=== PATIENT | female | born 1970 | race Caucasian/White ===

== ENCOUNTER 2020-03-13 01:33 | Outpatient (CLI) | payer OTHER, SELFPAY ==
[2020-03-13 18:23] LABS: SARS-CoV-2 RNA PCR Negative
== END 2020-03-13 01:34 | disposition home or self-care (01) ==
LOC: ANHCOVIDDT 01:33
PROVIDERS: PCP Family Medicine; Visit Provider Internal Medicine Gastroenterology
DX: Z01.812 Encounter for preprocedural laboratory examination (principal); Z20.828 Contact with and (suspected) exposure to other viral communicable diseases
CPT/HCPCS: 87635; C9803; U0003

== ENCOUNTER 2020-03-15 00:35 | Day surgery (SDC) | payer OTHER, SELFPAY ==
[2020-03-01 14:03] VITALS: BMI 23.3
[2020-03-15] MEDS: LACTATED RINGERS 1,000 ML 150 ML IV CONT (06:47)
[2020-03-15 06:54] VITALS: BP 125/74; PULSE 73; RESP 15; TEMP 36.3; O2SAT 100; BMI 22.4
--- NOTE | 2020-03-15 07:14 | P.PNAN_ITS ---
Anes - Initial Pre Proc Eval Procedure: Operation Date: 03/15/20 07:30 Proposed Procedures p Screening Colonoscopy - Yovani Grewal MD Date/Time: 03/15/20 07:14 Surgeon: Yovani Grewal MD Pre Op Diagnosis: neoplasm screening Patient Data Age: 50 Gender: F Height: 5 ft 3 in Weight: 57.6 kg Last Vital Signs Temp 97.4 F L 03/15/20 06:54 Pulse 73 03/15/20 06:54 Resp 15 03/15/20 06:54 BP 125/74 03/15/20 06:54 Pulse Ox 100 03/15/20 06:54 Allergies Allergy/AdvReac Type Severity Reaction Status Date / Time cat dander Allergy Unknown WHEEZING Verified 03/15/20 06:31 Home Medications Medication Instructions Recorded Confirmed Type albuterol sulfate 90 mcg/actuation 1 inhalation INHALATION Q4H PRN 01/09/20 03/15/20 History aerosol inhaler mometasone 200 mcg/actuation HFA 2 puff INHALATION DAILY gm 01/09/20 03/15/20 History aerosol inhaler cyclobenzaprine 10 mg tablet 10 mg PO TID PRN #30 tablet 02/21/20 03/15/20 Rx ascorbic acid (vitamin C) [Vitamin 1 g PO DAILY 03/01/20 03/15/20 History C] cholecalciferol (vitamin D3) 25 mcg PO DAILY 03/01/20 03/15/20 History [Vitamin D3] [id number]-lua-rdgy-FA-vit K 1 tablet PO DAILY 03/01/20 03/15/20 History [Adults Multivitamin] Patient hx anesthesia problems: none Family hx anesthesia problems: none [facility] Social History Social History (Reviewed 02/21/20 @ 12:43 by Monae Chaudhary [facility]) Smoking status: Never smoker Alcohol intake: current Drinks per week: 6 Substance use: never Substance use type: does not use Anes - Eval Final PreProcedure Day of Procedure 03/15/20 07:14 Patient weight: normal Heart: regular rate and rhythm Lungs: clear to auscultation Airway: Mallampati scale class II Neurological: alert and oriented Last oral intake: >/= 8 hours ASA classification: II Emergent: no Anesthetic plan: proceed Anesthesia type and monitoring: general GIVS and standard monitoring Informed Consent: The patient's anesthetic plan and its attendant risks and benefits were discussed with the patient/family/POA. Questions were solicited and answers provided to the satisfaction of the patient/family/POA.
--- NOTE | 2020-03-15 07:47 | WPDGICN ---
Assessment and Plan Assessment and plan (1) Encounter for screening colonoscopy: Code(s): Z12.11 - Encounter for screening for malignant neoplasm of colon Status: Acute Assessment and Plan: Screening colonoscopy plan because of age. Patient appears to be at average risk for colon polyps. Plan is for colonoscopy further recommendations will be given after endoscopy. GI Consult Note Consult date/time: 03/15/20 07:47 HPI: Mini Gardiner is a 50 year old female Seen in evaluation at the request of Dr. Starla Agrawal. Patient presents for neoplasia screening. Current weight appetite bowel movements are normal. She denies abdominal pain. She has had no blood in her stools. Family history is noncontributory. Review of Systems Review of Systems: All systems reviewed & are unremarkable except as noted in HPI and below PMFSH Past Medical History Medical History Asthma Fibrocystic breast Right breast; biopsy-2019 Surgical History Surgical History Delivery by section 1996 Delivery by section 2000 Fibroid, uterine 2018 Family History Family History Grandparent Heart disease Breast cancer Malignant neoplasm of prostate Glaucoma Mother Asthma Social History Social History Smoking status: Never smoker Alcohol intake: current Drinks per week: 6 Substance use: never Substance use type: does not use Meds Home Medications and Allergies Home Medications Medication Instructions Recorded Confirmed Type albuterol sulfate 90 mcg/actuation 1 inhalation INHALATION Q4H PRN 01/09/20 03/15/20 History aerosol inhaler mometasone 200 mcg/actuation HFA 2 puff INHALATION DAILY gm 01/09/20 03/15/20 History aerosol inhaler cyclobenzaprine 10 mg tablet 10 mg PO TID PRN #30 tablet 02/21/20 03/15/20 Rx ascorbic acid (vitamin C) [Vitamin 1 g PO DAILY 03/01/20 03/15/20 History C] cholecalciferol (vitamin D3) 25 mcg PO DAILY 03/01/20 03/15/20 History [Vitamin D3] tiwvrfbwmdxy-mpy-fclw-FA-vit K 1 tablet PO DAILY 03/01/20 03/15/20 History [Adults Multivitamin] Allergies Allergy/AdvReac Type Severity Reaction Status Date / Time cat dander Allergy Unknown WHEEZING Verified 03/15/20 06:31 Vital Signs Vital Signs - 24 hr 03/15/20 06:54 Temperature 97.4 F L Pulse Rate 73 Respiratory Rate 15 Blood Pressure 125/74 Pulse Oximetry 100 Exam Narrative: Exam Narrative: Physical exam reveals Vital Signs to be stable. HEENT exam unremarkable. She is anicteric. Lungs are clear to auscultation and percussion. Heart is without murmur or extra sounds. Abdominal exam bowel sounds are present soft nontender with no hepatosplenomegaly. Digital external rectal exam is normal.
[2020-03-15 07:51] VITALS: BP 112/62; PULSE 81; RESP 17; O2SAT 100
[2020-03-15 08:01] VITALS: BP 96/60; PULSE 70; RESP 17; O2SAT 100
[2020-03-15 08:11] VITALS: BP 103/69; PULSE 67; RESP 15; O2SAT 100
== END 2020-03-15 08:17 | disposition home or self-care (01) ==
PROVIDERS: PCP Family Medicine; Visit Provider Internal Medicine Gastroenterology
PROC: 0DJD8ZZ Inspection of Lower Intestinal Tract, Via Natural or Artificial Opening Endoscopic (ICD-10-PCS; CPT 45378; principal; 2020-03-15 07:30)
DX: Z12.11 Encounter for screening for malignant neoplasm of colon (principal)
CPT/HCPCS: 45378; J2704; J7120